=== PATIENT | female | born 1980 | race Caucasian/White ===

== ENCOUNTER 2017-01-26 16:57 | Inpatient (IN) | payer OTHER ==
[~2017-01-26] VITALS: Ht 182.9 cm; Wt 73.1 kg
[~2017-01-26 16:57] MED LIST changes: -ABILIFY 15MG TA15 MG PO; -ADDERALL20 MG PO; -ADDERALL5 MG; -CEPHALEXIN500 M1 PO; -CIPRO 500MG TA500 MG PO; -COMPAZINE 110 MG/TAB PO; -DOXYCYCLINE HY100 MG PO; -HCTZ 25MG TAB25 MG PO; -HCTZ12.5TAB; -NORCO 325 MG-51 TAB PO; -PERCOCET 325 MG1 TA2 PO
[2017-01-26 17:10] VITALS: BP 115/71; PULSE 93; TEMP 97.1
[2017-01-26] MEDS ORDERED: ADDERALL20 MG PO (17:29)
[2017-01-26] MEDS ORDERED: HCTZ 25MG TAB25 MG PO (17:29)
[2017-01-26 21:34] VITALS: BP 104/59; PULSE 81; TEMP 98.7
[2017-01-27] VITALS (14 sets, daily range): BP systolic 100–116; BP diastolic 55–86; PULSE 73–102; TEMP 97.4–100.9
[2017-01-27 13:33] LABS: BASO % 0.2 % (0.0-2.0); EOS # 0.2 (0.0-0.7); EOS % 1.5 % (0-4.0); GRAN # 7.7 (1.4-6.5); GRAN % 78.8 % (42.2-75.2); LYMPH # 1.2 (1.2-3.4); LYMPH % 12.6 % (20.0-51.0); MEAN CELL VOLUME 86 fl (80.0-100.0); MEAN CORPUSCULAR HGB CONC 33 g/dl (33.0-37.0); MONO # 0.6 (0.1-0.6); MONO % 6.4 % (1.7-9.3); PLATELET COUNT 167 K/mm3 (130-400); RED BLOOD COUNT 4.02 M/mm3 (4.10-5.30); WHITE BLOOD COUNT 9.7 K/mm3 (4.8-10.8)
[2017-01-27 13:34] LABS: HEMOGLOBIN 11.5 g/dl (12.5-16.0); MEAN CORPUSCULAR HEMOGLOBIN 29 pg (27.0-31.0)
[2017-01-27 13:35] LABS: HEMATOCRIT 34.7 % (37.0-47.0)
[2017-01-27 13:51] LABS: CALCIUM 8.1 mg/dL (8.4-10.2); CREATININE, serum 0.54 mg/dL (0.52-1.25); POTASSIUM 3.8 mmol/L (3.4-5.0)
[2017-01-28 02:04] VITALS: BP 82/44; PULSE 69; TEMP 98.5
[2017-01-28 05:49] VITALS: BP 90/55; PULSE 57; TEMP 98.5
[2017-01-28 10:09] VITALS: BP 97/58; PULSE 68; TEMP 98.4
[2017-01-28] MEDS ORDERED: DOXYCYCLINE HY100 MG PO (12:35)
[2017-01-28] MEDS ORDERED: NORCO 325 MG-51 TAB PO (12:36)
== END 2017-01-28 13:10 | disposition home or self-care (01) | DRG 603 ==
LOC: SURG 16:57
PROVIDERS: Surgery
PROC: 0H9DXZZ Drainage of Right Lower Arm Skin, External Approach (ICD-10-PCS; principal; 2017-01-27 10:15)
DX: L02.413 Cutaneous abscess of right upper limb (principal); I10 Essential (primary) hypertension
CPT/HCPCS: A9284; J2270; J2405; J2704; J3010; J3370; J7050

== ENCOUNTER → 2017-01-26 | Outpatient (CLI) | payer OTHER ==
[~2017-01-26] MED LIST: ABILIFY 15MG TA15 MG PO; ADDERALL20 MG PO; ADDERALL5 MG; CEPHALEXIN500 M1 PO; CIPRO 500MG TA500 MG PO; COMPAZINE 110 MG/TAB PO; DOXYCYCLINE HY100 MG PO; HCTZ 25MG TAB25 MG PO; HCTZ12.5TAB; NORCO 325 MG-51 TAB PO; PERCOCET 325 MG1 TA2 PO; PRENATAL VITAMI1 TA5 PO
== END ==
LOC: ZCOL.LAB 20:43
DX: L02.413 Cutaneous abscess of right upper limb (principal)

== ENCOUNTER 2018-03-31 18:06 | Inpatient (IN) | payer SELFPAY ==
[~2018-03-31] VITALS: Ht 172.7 cm; Wt 68.2 kg
[~2018-03-31 18:06] MED LIST changes: +ADDERALL20 MG PO; +DOXYCYCLINE HY100 MG PO; +HCTZ 25MG TAB25 MG PO; +NORCO 325 MG-51 TAB PO
[2018-03-31 18:25] LABS: BASO # 0.1 (0.0-0.2); BASO % 0.3 % (0.0-2.0); GRAN # 21.9 (1.4-6.5); GRAN % 90.8 % (42.2-75.2); HEMATOCRIT 38.3 % (37.0-47.0); HEMOGLOBIN 12.5 g/dl (12.5-16.0); LYMPH # 1.2 (1.2-3.4); MEAN CELL VOLUME 86 fl (80.0-100.0); MEAN CORPUSCULAR HEMOGLOBIN 28 pg (27.0-31.0); MEAN CORPUSCULAR HGB CONC 33 g/dl (33.0-37.0); MEAN PLATELET VOLUME 9.4 fl (7.4-10.4); MONO # 0.8 (0.1-0.6); MONO % 3.4 % (1.7-9.3); PLATELET COUNT 535 K/mm3 (130-400); RED BLOOD COUNT 4.48 M/mm3 (4.10-5.30); REDCELL DISTRIBUTION WIDTH-CV 14.5 % (11.5-14.5)
[2018-03-31 18:38] LABS: ALBUMIN 3.9 gm/dL (3.5-5.0); BILIRUBIN,TOTAL 0.7 mg/dL (0.0-1.0); C-REACTIVE PROTEIN 0.7 mg/dL (0.0-0.9); CALCIUM 9.3 mg/dL (8.4-10.2); CREATININE, serum 0.94 mg/dL (0.52-1.25); POTASSIUM 3.7 mmol/L (3.4-5.0); TOTAL PROTEIN 7.1 gm/dL (6.4-8.2)
[2018-03-31 18:57] LABS: COLLECTION METHOD CLEAN CATCH
[2018-03-31 19:04] LABS: PH 9 (5-8); URINE APPEARANCE Hazy; URINE BACTERIA None Seen /hpf; URINE BILIRUBIN Negative (NEGATIVE); URINE BLOOD Negative (NEGATIVE); URINE COLOR Yellow; URINE GLUCOSE Negative (NEGATIVE); URINE KETONE Trace (NEGATIVE); URINE LEUKOCYTE ESTERASE 1+ (NEGATIVE); URINE NITRATE Negative (NEGATIVE); URINE PROTEIN(semi-quant) 2+ (NEGATIVE); URINE UROBILINOGEN Negative (NEGATIVE)
[2018-03-31 21:38] VITALS: BP 138/89; PULSE 59; TEMP 98.3
[2018-04-01] VITALS (14 sets, daily range): BP systolic 79–106; BP diastolic 43–88; PULSE 51–84; TEMP 97.4–98.7
[2018-04-01 07:30] LABS: HEMOGLOBIN 10.8 g/dl (12.5-16.0); MEAN CELL VOLUME 86 fl (80.0-100.0); MEAN CORPUSCULAR HEMOGLOBIN 28 pg (27.0-31.0); MEAN CORPUSCULAR HGB CONC 32 g/dl (33.0-37.0); MEAN PLATELET VOLUME 10.3 fl (7.4-10.4); RED BLOOD COUNT 3.87 M/mm3 (4.10-5.30); REDCELL DISTRIBUTION WIDTH-CV 14.7 % (11.5-14.5)
[2018-04-01 07:34] LABS: HEMATOCRIT 33.3 % (37.0-47.0); PLATELET COUNT 410 K/mm3 (130-400)
[2018-04-01 07:37] LABS: CREATININE, serum 0.92 mg/dL (0.52-1.25)
[2018-04-01 08:40] LABS: BAND 10 % (0-10); LYMPHOCYTE 6 % (20.0-51.0); NEUTROPHILS 82 % (42.0-75.2); PLATELET ESTIMATE INCREASED (NORMAL)
[2018-04-02 04:16] VITALS: BP 86/54; PULSE 46; TEMP 97.7
[2018-04-02 06:15] LABS: BASO % 0.1 % (0.0-2.0); EOS % 0.1 % (0-4.0); GRAN # 10.2 (1.4-6.5); LYMPH # 1.2 (1.2-3.4); MEAN CELL VOLUME 89 fl (80.0-100.0); MEAN CORPUSCULAR HGB CONC 32 g/dl (33.0-37.0); MEAN PLATELET VOLUME 10.3 fl (7.4-10.4); MONO # 0.5 (0.1-0.6); PLATELET COUNT 327 K/mm3 (130-400); RED BLOOD COUNT 3.51 M/mm3 (4.10-5.30)
[2018-04-02 06:20] LABS: HEMATOCRIT 31.1 % (37.0-47.0); HEMOGLOBIN 9.8 g/dl (12.5-16.0); MEAN CORPUSCULAR HEMOGLOBIN 28 pg (27.0-31.0)
[2018-04-02 06:26] LABS: CALCIUM 8.2 mg/dL (8.4-10.2); CREATININE, serum 0.82 mg/dL (0.52-1.25); MAGNESIUM 1.9 mg/dL (1.6-2.3); POTASSIUM 4.6 mmol/L (3.4-5.0)
[2018-04-02 09:18] VITALS: BP 102/63; PULSE 85; TEMP 98
[2018-04-02 09:19] VITALS: BP 110/58
[2018-04-02 11:55] VITALS: BP 117/74; PULSE 77; TEMP 98.4
[2018-04-02] MEDS ORDERED: CIPRO 500MG TA500 MG PO (12:13)
[2018-04-02] MEDS ORDERED: COMPAZINE 110 MG/TAB PO (12:14)
[2018-04-02] MEDS ORDERED: NORCO 325 MG-51 TAB PO (12:16)
== END 2018-04-02 16:15 | disposition home or self-care (01) | DRG 661 ==
LOC: COL.ER 18:06 → SURG 20:12
PROVIDERS: Family Medicine; Internal Medicine; Nurse Practitioner; Urology
PROC: 0TCB8ZZ Extirpation of Matter from Bladder, Via Natural or Artificial Opening Endoscopic (ICD-10-PCS; principal; 2018-04-01 12:00)
PROC: 0T778DZ Dilation of Left Ureter with Intraluminal Device, Via Natural or Artificial Opening Endoscopic (ICD-10-PCS; 2018-04-01 12:00)
PROC: BT1F1ZZ Fluoroscopy of Left Kidney, Ureter and Bladder using Low Osmolar Contrast (ICD-10-PCS; 2018-04-01 12:00)
PROC: 0T9B80Z Drainage of Bladder with Drainage Device, Via Natural or Artificial Opening Endoscopic (ICD-10-PCS; 2018-04-01 12:00)
DX: N13.6 Pyonephrosis (principal); F90.9 Attention-deficit hyperactivity disorder, unspecified type; Z87.891 Personal history of nicotine dependence; D64.9 Anemia, unspecified; I95.9 Hypotension, unspecified
CPT/HCPCS: OP; 99222-AI; A4216; C1769; C2617; G0378; J0690; J0696; J1100; J1170; J1580; J2405; J2550; J2704; J3010; J7030; J7120; Q9967

== ENCOUNTER 2018-06-08 16:12 | Emergency (ER) | payer SELFPAY ==
[~2018-06-08] VITALS: Ht 182.9 cm; Wt 68.2 kg
[~2018-06-08 16:12] MED LIST changes: +CIPRO 500MG TA500 MG PO; +COMPAZINE 110 MG/TAB PO
[2018-06-08 16:17] VITALS: TEMP 98
[2018-06-08] MEDS ORDERED: ADDERALL5 MG (17:00)
[2018-06-08] MEDS ORDERED: HCTZ12.5TAB (17:01)
[2018-06-08 17:50] LABS: ALANINE AMINOTRANSFERASE 25 U/L (9-52); ALBUMIN 4.5 gm/dL (3.5-5.0); ALKALINE PHOSPHATASE 83 U/L (50-136); ANION GAP 8 mmol/L (7-16); AST,SGOT 23 U/L (15-37); BILIRUBIN,TOTAL 0.6 mg/dL (0.0-1.0); BLOOD UREA NITROGEN 11 mg/dL (7-17); CALCIUM 9.9 mg/dL (8.4-10.2); CARBON DIOXIDE 30 mmol/L (22-30); CHLORIDE 102 mmol/L (98-107); CREATININE, serum 0.77 mg/dL (0.52-1.25); GLUCOSE 102 mg/dL (74-106); POTASSIUM 3.6 mmol/L (3.4-5.0); SODIUM 140 mmol/L (137-145)
[2018-06-08 17:51] LABS: BASO % 0.5 % (0.0-2.0); EOS # 0.1 (0.0-0.7); EOS % 1.4 % (0-4.0); GRAN # 5.3 (1.4-6.5); HEMATOCRIT 44.1 % (37.0-47.0); HEMOGLOBIN 14.2 g/dl (12.5-16.0); LYMPH # 2.5 (1.2-3.4); LYMPH % 29.5 % (20.0-51.0); MEAN CELL VOLUME 85 fl (80.0-100.0); MEAN CORPUSCULAR HEMOGLOBIN 27 pg (27.0-31.0); MEAN CORPUSCULAR HGB CONC 32 g/dl (33.0-37.0); MEAN PLATELET VOLUME 10.5 fl (7.4-10.4); MONO # 0.6 (0.1-0.6); MONO % 6.4 % (1.7-9.3); PLATELET COUNT 266 K/mm3 (130-400)
[2018-06-08 17:52] LABS: ACETAMINOPHEN < 10 ug/mL (10-30); ALCOHOL(ethanol),MEDICAL < 10 mg/dL; SALICYLATE < 1.0 mg/dL
[2018-06-08 20:12] LABS: COLLECTION METHOD CLEAN CATCH
[2018-06-08 20:18] VITALS: BP 124/68; PULSE 84
[2018-06-08 20:27] LABS: TRICYCLIC ANTIDEPRESS URINE NEGATIVE
[2018-06-08 20:39] LABS: MUCOUS Present /lpf; PH 7 (5-8); SQUAMOUS EPITHELIAL None Seen /hpf; URINE APPEARANCE Cloudy; URINE BACTERIA None Seen /hpf; URINE BILIRUBIN Negative (NEGATIVE); URINE BLOOD 3+ (NEGATIVE); URINE COLOR Yellow; URINE GLUCOSE Negative (NEGATIVE); URINE KETONE Negative (NEGATIVE); URINE LEUKOCYTE ESTERASE 3+ (NEGATIVE); URINE NITRATE Negative (NEGATIVE); URINE PROTEIN(semi-quant) 2+ (NEGATIVE); URINE UROBILINOGEN Negative (NEGATIVE)
[2018-06-09] MEDS ORDERED: CIPRO 500MG TA500 MG PO ×2 (12:09)
[2018-06-10] MEDS ORDERED: CEPHALEXIN500 M1 PO (15:05)
== END 2018-06-09 01:24 | disposition home or self-care (01) ==
LOC: COL.ER 16:12
PROVIDERS: Emergency Medicine
DX: F32.9 Major depressive disorder, single episode, unspecified (principal); F43.10 Post-traumatic stress disorder, unspecified; F90.9 Attention-deficit hyperactivity disorder, unspecified type; F17.210 Nicotine dependence, cigarettes, uncomplicated

== ENCOUNTER 2018-09-23 21:42 | Day surgery (SDC) | payer SELFPAY ==
[~2018-09-23] VITALS: Ht 182.9 cm; Wt 70.0 kg
[~2018-09-23 21:42] MED LIST changes: +ADDERALL5 MG; +CEPHALEXIN500 M1 PO; +HCTZ12.5TAB
[2018-09-23 22:04] LABS: COLLECTION METHOD CLEAN CATCH
[2018-09-23 22:11] LABS: MUCOUS Present /lpf; PH 6 (5-8); SQUAMOUS EPITHELIAL None Seen /hpf; URINE APPEARANCE Cloudy; URINE BACTERIA Rare /hpf; URINE BILIRUBIN Negative (NEGATIVE); URINE BLOOD 2+ (NEGATIVE); URINE COLOR Amber; URINE GLUCOSE Negative (NEGATIVE); URINE KETONE Negative (NEGATIVE); URINE LEUKOCYTE ESTERASE 3+ (NEGATIVE); URINE NITRATE Positive (NEGATIVE); URINE PROTEIN(semi-quant) 2+ (NEGATIVE); URINE RBC >50 /hpf; URINE UROBILINOGEN >=4.0 mg/dL (NEGATIVE)
[2018-09-23 23:44] LABS: BASO % 0.2 % (0.0-2.0); EOS # 0.1 (0.0-0.7); EOS % 0.8 % (0-4.0); GRAN # 12.6 (1.4-6.5); GRAN % 79.4 % (42.2-75.2); HEMATOCRIT 41.2 % (37.0-47.0); HEMOGLOBIN 13.7 g/dl (12.5-16.0); LYMPH # 2.1 (1.2-3.4); LYMPH % 12.9 % (20.0-51.0); MEAN CELL VOLUME 84 fl (80.0-100.0); MEAN CORPUSCULAR HEMOGLOBIN 28 pg (27.0-31.0); MEAN CORPUSCULAR HGB CONC 33 g/dl (33.0-37.0); MEAN PLATELET VOLUME 11.4 fl (7.4-10.4); MONO % 6.4 % (1.7-9.3); PLATELET COUNT 177 K/mm3 (130-400); RED BLOOD COUNT 4.92 M/mm3 (4.10-5.30); REDCELL DISTRIBUTION WIDTH-CV 13.2 % (11.5-14.5)
[2018-09-23 23:58] LABS: ALBUMIN 3.6 gm/dL (3.5-5.0); BILIRUBIN,TOTAL 0.7 mg/dL (0.0-1.0); C-REACTIVE PROTEIN 7.6 mg/dL (0.0-0.9); CREATININE, serum 0.73 (0.52-1.25); POTASSIUM 3.6 mmol/L (3.4-5.0); TOTAL PROTEIN 6.6 gm/dL (6.4-8.2)
[2018-09-24] VITALS (12 sets, daily range): BP systolic 92–121; BP diastolic 61–85; PULSE 66–92; TEMP 98.1–99.4
--- NOTE | 2018-09-24 03:50 | NUR ---
Pt arrived at room from ER via stretcher. Pt guarding and has difficulty ambulating/standing straight. BS hypoactive. Respirations even and unalbored. Lungs clear. VSS. No acute needs at this time.
[2018-09-24] MEDS ORDERED: ADDERALL20 MG PO (04:13)
[2018-09-24] MEDS ORDERED: ABILIFY 15MG TA15 MG PO (04:15)
--- NOTE | 2018-09-24 04:38 | NUR ---
Five page admission done. Pt rating pain 7/10 in abdomen-radiating to back. Pain is sharp and stabbing. PRN pain medication administered. Pt is awake and alert.
--- NOTE | 2018-09-24 05:50 | NUR ---
Pts friend came to nursing station to alert staff that pt was having "spasms". Upon assessment, pt is guarding and visibly distressed. Pt describes pain 7/10 that is cramping/spasms in abdomen. Pt advised that it has not been long enough to get PRN Dilaudid again. Warm blanket provided to place on abdomen for comfort. Pt reports some relief. Will continue to monitor.
--- NOTE | 2018-09-24 06:20 | NUR ---
Pt sleeping. Easily arousable but drowsy. Friend at bedside. Pt erports pain in abdomen is 4/10 and cramping/spasm has subsided. Pt denies need for pain medication at this time, but is educated that she can have it, if needed. Pt has remained NPO. No needs noted.
--- NOTE | 2018-09-24 07:09 | NUR ---
Report given to Karli HINTON. Pt called out for pain medication. Rating pain 7/10 in abdomen. Pain is described as cramping/spasm. Pt is guarding and yelling out in pain. PRN pain medication given.
--- NOTE | 2018-09-24 08:00 | NUR ---
PATIENT IS DROWSY THIS MORNING. PATIENT AROUSES EASILY TO NAME. PATIENT IS A&OX4. SHALLOW, TACHYPNIC BREATHING AND LOW FEVER NOTED, OTHERWISE VSS. BOWEL SOUNDS HYPOACTIVE ALL FOUR QUADRANTS. PATIENT IS NPO FOR PROCEDURE. PATIENT DENIES COMPLAINTS OF N/V. PATIENT STATES THAT SHE FEELS WEAK THIS MORNING. POSITIVE PEDAL PULSES EQUAL BILATERALLY. NON-PITTING EDEMA TO FEET BILATERALLY. SEE MORNING ASSESSMENT. ARCHANA LIGHT WITHIN REACH.
--- NOTE | 2018-09-24 09:13 | NUR ---
PATIENT CONSENT FORMS FOR LAP APPY AND LEFT URETEROSCOPY STONE ABLATION AND STENT REMOVAL SIGNED AND ON PATIENT CHART.
--- NOTE | 2018-09-24 09:16 | NUR ---
PATIENT GIVEN PRN DOSE OF IV DILAUDID FOR PAIN RATED A 7/10 ON A 0-10 SCALE.
--- NOTE | 2018-09-24 10:50 | NUR ---
Initial visit; Patient receptive to Retail Sales Manager's visit prior to her surgical procedure. Patient requested Retail Sales Manager keep her in her prayers.
--- NOTE | 2018-09-24 11:03 | NUR ---
PATIENT CONSENT FORM FOR SURGERY SIGNED AND ON PATIENT CHART.
--- NOTE | 2018-09-24 13:06 | NUR ---
PATIENT IS TEARS UPON ENTRY INTO ROOM. PATIENT RATING HER PAIN AN 8/10 ON A 0-10 SCALE. PATIENT GIVEN PRN DOSE OF IV DILAUDID. WILL CONTINUE TO MONITOR.
--- NOTE | 2018-09-24 15:12 | NUR ---
PATIENT TAKEN TO PERIOP VIA BED BY JAMAAL PENNINGTON. WILL WAIT FOR ARRIVAL POST-OP TO ROOM 347.
--- NOTE | 2018-09-24 18:10 | NUR ---
PATIENT ARRIVED TO ROOM 347 VIA BED FROM PACU. PATIENT SETTELED INTO ROOM. BLOOD PRESSURES LOW, BUT POST-OP VITALS STABLE. ABDOMINAL LAP SITES X3 DRESSED WITH BANDAIDS AND ARE CD&I. PATIENT TOLERATING SIPS AND CHIPS. NO NEEDS AT THIS TIME.
--- NOTE | 2018-09-24 18:49 | NUR ---
REPORT GIVEN TO JAMAAL REYES.
--- NOTE | 2018-09-24 19:48 | NUR ---
Patient states she has pain 5/10 to abdomen. Percocet given. Respirations at 12, but answers questions appropriately. Patient talking on the phone, but IVF discontinued. Currently eating dinner. Will monitor.
--- NOTE | 2018-09-24 22:05 | NUR ---
Upon arrival to room patient noted to be resting with eyes closed and snoring. Patient did not wake up when this nurse was taking the dynamap off her finger. This nurse walked around the bed, and stated patient's name. She opened her eyes and I told her I was going to take the blood pressure cuff off. Patient noted to be diaphoretic. Then cried out in pain and stated her abdomen hurt. She asked when she could have pain medication next, but her words noted to be mumbled. She then fell back to sleep before I had time to answer. Will monitor patient closely.
--- NOTE | 2018-09-25 01:55 | NUR ---
Patient resting well in bed with eyes closed. Call light in reach. Will continue to monitor.
[2018-09-25 04:00] VITALS: BP 93/60; PULSE 72; TEMP 98.3
--- NOTE | 2018-09-25 05:35 | NUR ---
Patient resting in bed with eyes closed. Breathing 16bpm. No s/sx of pain noted. Call light within reach. Will continue to monitor.
--- NOTE | 2018-09-25 06:57 | NUR ---
Report given to JAMAAL Calvillo.
[2018-09-25 07:52] VITALS: BP 97/52; PULSE 63; TEMP 97.9
--- NOTE | 2018-09-25 08:00 | NUR ---
PATIENT IS DROWSY AND RESTING IN BED. PATIENT AROUSES EASILY. PATIENT IS A&OX4. BP LOW, OTHERWISE VSS. ABDOMINAL LAP SITES X3 DRESSED WITH BANDAIDS WITH SCANT AMOUNT OF SHADING PRESENT. BOWEL SOUNDS ACTIVE ALL FOUR QUADRANTS. PATIENT RATING HER PAIN A 4/10 ON A 0-10 SCALE. SEE MORNING ASSESSMENT. BREAKFAST TRAY ORDERED. CALL LIGHT WITHIN REACH. NO NEEDS AT THIS TIME.
[2018-09-25] MEDS ORDERED: PERCOCET 325 MG1 TA2 PO (09:45)
[2018-09-25 11:50] VITALS: BP 106/61; PULSE 81; TEMP 98.7
--- NOTE | 2018-09-25 13:56 | NUR ---
PATIENT'S LEFT HAND INT DC'D PER PENDING DISCHARGE. PATIENT TOLERATED WELL. PATIENT GIVEN TWO TABLETS OF PRN PERCOCET PRIOR TO DISCHARGE. DISCHARGE INSTRUCTIONS REVIEWED WITH PATIENT. ALL QUESTIONS ANSWERED. PATIENT PERSONAL BELONGINGS GATHERED. PATIENT WAITING FOR RIDE TO ARRIVE FOR DISCHARGE. NO OTHER NEEDS AT THIS TIME.
--- NOTE | 2018-09-25 14:04 | NUR ---
JORDY met with patient about discharge planning. Patient is waiting for her friend to pick her up. Patient lives independently at home with her friend. Patient reports she is currently homeless but is staying with her friend until she can get a apartment of her own. Patient does not have a PCP because she does not have insurance. JORDY informed patient of the Clinic and [facility] because both of those clinics accept patient's without insurance. Patient reports she does not have any DME or home health services. She also does not have a DPOA and is not interested in completing one at this time. No discharge needs.
--- NOTE | 2018-09-25 14:50 | NUR ---
PATIENT TAKEN TO PERSONAL VEHICLE VIA WHEELCHAIR BY SURGICAL STAFF. PATIENT DISCHARGED.
== END 2018-09-25 14:50 | disposition home or self-care (01) ==
LOC: COL.ER 21:42 → SDCO 09-24 03:30 → COL.ER 09-24 03:30 → SURG 09-24 03:30 → EDBEDREQSVC 09-24 03:35 → SURG 09-25 14:50 → SDCO 09-25 14:50
PROVIDERS: Emergency Medicine
DX: K35.891 Other acute appendicitis without perforation, with gangrene (principal); N20.1 Calculus of ureter; K42.9 Umbilical hernia without obstruction or gangrene; F17.210 Nicotine dependence, cigarettes, uncomplicated; Z88.2 Allergy status to sulfonamides; Z79.899 Other long term (current) drug therapy; Z87.442 Personal history of urinary calculi; F98.8 Other specified behavioral and emotional disorders with onset usually occurring in childhood and adolescence; F41.9 Anxiety disorder, unspecified; F43.10 Post-traumatic stress disorder, unspecified; L55.9 Sunburn, unspecified; M19.042 Primary osteoarthritis, left hand; M19.041 Primary osteoarthritis, right hand; M19.072 Primary osteoarthritis, left ankle and foot; M19.071 Primary osteoarthritis, right ankle and foot
CPT/HCPCS: C1769; G0378; J0696; J1170; J2405; J2550; J2704; J3010; J7030; J7120; Q9967

== ENCOUNTER 2019-03-05 11:51 | Emergency (ER) | payer SELFPAY ==
[~2019-03-05] VITALS: Ht 182.9 cm; Wt 77.3 kg
[~2019-03-05 11:51] MED LIST changes: +ABILIFY 15MG TA15 MG PO; +PERCOCET 325 MG1 TA2 PO
[2019-03-05 11:59] VITALS: TEMP 98.3
[2019-03-05 12:35] LABS: COLLECTION METHOD CLEAN CATCH
[2019-03-05 12:38] LABS: BASO % 0.4 % (0.0-2.0); EOS # 0.1 (0.0-0.7); EOS % 1.1 % (0-4.0); GRAN # 5.2 (1.4-6.5); GRAN % 71.5 % (42.2-75.2); HEMATOCRIT 44.1 % (37.0-47.0); HEMOGLOBIN 14.4 g/dl (12.5-16.0); LYMPH # 1.6 (1.2-3.4); LYMPH % 21.8 % (20.0-51.0); MEAN CELL VOLUME 88 fl (80.0-100.0); MEAN CORPUSCULAR HEMOGLOBIN 29 pg (27.0-31.0); MEAN CORPUSCULAR HGB CONC 33 g/dl (33.0-37.0); MONO # 0.4 (0.1-0.6); MONO % 5.1 % (1.7-9.3); PLATELET COUNT 211 K/mm3 (130-400); RED BLOOD COUNT 5.02 M/mm3 (4.10-5.30); REDCELL DISTRIBUTION WIDTH-CV 13.2 % (11.5-14.5)
[2019-03-05 12:41] LABS: MUCOUS Present /lpf; PH 6 (5-8); SQUAMOUS EPITHELIAL 0-2 /hpf; URINE APPEARANCE Clear; URINE BACTERIA None Seen /hpf; URINE BILIRUBIN Negative (NEGATIVE); URINE BLOOD Negative (NEGATIVE); URINE COLOR Yellow; URINE GLUCOSE Negative (NEGATIVE); URINE KETONE Negative (NEGATIVE); URINE LEUKOCYTE ESTERASE Negative (NEGATIVE); URINE NITRATE Negative (NEGATIVE); URINE PROTEIN(semi-quant) Negative (NEGATIVE); URINE RBC 0-2 /hpf; URINE UROBILINOGEN Negative (NEGATIVE)
[2019-03-05 12:55] LABS: ALANINE AMINOTRANSFERASE 21 U/L (9-52); ALBUMIN 4.4 gm/dL (3.5-5.0); ALKALINE PHOSPHATASE 72 U/L (50-136); ANION GAP 10 mmol/L (7-16); AST,SGOT 18 U/L (15-37); BILIRUBIN,TOTAL 0.5 mg/dL (0.0-1.0); BLOOD UREA NITROGEN 10 mg/dL (7-17); CALCIUM 9.2 mg/dL (8.4-10.2); CARBON DIOXIDE 25 mmol/L (22-30); CHLORIDE 106 mmol/L (98-107); GLUCOSE 89 mg/dL (74-106); POTASSIUM 4.1 mmol/L (3.4-5.0); SODIUM 141 mmol/L (137-145); TOTAL PROTEIN 7.2 gm/dL (6.4-8.2)
[2019-03-05 13:20] LABS: C-REACTIVE PROTEIN < 0.5 mg/dL (0.0-0.9)
[2019-03-05] MEDS ORDERED: FLAGYL500 MG PO (14:12)
[2019-03-05 15:14] VITALS: BP 101/68; PULSE 58
[2019-03-05 15:35] LABS: LIPASE 230 U/L (23-300)
== END 2019-03-05 15:15 | disposition home or self-care (01) ==
LOC: COL.ER 11:51
PROVIDERS: Emergency Medicine
DX: N76.0 Acute vaginitis (principal); B96.89 Other specified bacterial agents as the cause of diseases classified elsewhere; F17.210 Nicotine dependence, cigarettes, uncomplicated; F43.10 Post-traumatic stress disorder, unspecified; Z90.89 Acquired absence of other organs
CPT/HCPCS: J2270; J2405; J7030; Q9967

== ENCOUNTER → 2019-03-28 | Outpatient (CLI) | payer OTHER ==
[~2019-03-28] MED LIST changes: +FLAGYL500 MG PO
== END ==
LOC: COL.RAD 09:33
DX: Z02.71 Encounter for disability determination (principal); M47.898 Other spondylosis, sacral and sacrococcygeal region

== ENCOUNTER → 2019-04-11 | Outpatient (CLI) | payer OTHER | LOC: MC.RAD 10:40 | DX: N63.20 Unspecified lump in the left breast, unspecified quadrant (principal) | CPT/HCPCS: G0279 ==

== ENCOUNTER → 2019-04-24 | Outpatient (CLI) | payer OTHER | LOC: MC.RAD 09:55 | DX: N63.20 Unspecified lump in the left breast, unspecified quadrant (principal) ==

== ENCOUNTER 2019-05-03 09:20 | Outpatient (RCR) | payer OTHER | END 2019-05-27 16:16 | disposition home or self-care (01) | LOC: WSC 09:20 | DX: Z02.71 Encounter for disability determination (principal) ==

== ENCOUNTER 2021-11-23 01:20 | Observation (INO) | payer SELFPAY ==
[2021-11-23] VITALS (1346 sets, daily range): BP systolic 119–1126; BP diastolic 78–127; PULSE 55–98; TEMP 99; O2SAT 91–100
[~2021-11-23] VITALS: Ht 165.1 cm; Wt 77.8 kg
[2021-11-23 02:34] LABS: BASO % 0.6 % (0.0-2.0); EOS # 0.4 K/mm3 (0.0-0.7); EOS % 5.5 % (0.0-4.0); GRAN # 3.8 K/mm3 (1.4-6.5); GRAN % 57.2 % (42.2-75.2); HEMATOCRIT 37.9 % (37.0-47.0); HEMOGLOBIN 12.4 g/dl (12.5-16.0); LYMPH # 1.9 K/mm3 (1.2-3.4); MEAN CELL VOLUME 85 fl (80.0-100.0); MEAN CORPUSCULAR HEMOGLOBIN 28 pg (27-31); MEAN CORPUSCULAR HGB CONC 33 g/dl (33.0-37.0); MEAN PLATELET VOLUME 11.6 fl (7.4-10.4); MONO # 0.5 K/mm3 (0.1-0.6); MONO % 7.5 % (1.7-9.3); PLATELET COUNT 176 K/mm3 (130-400); RED BLOOD COUNT 4.45 M/mm3 (4.10-5.30); REDCELL DISTRIBUTION WIDTH-CV 13.1 % (11.5-14.5)
[2021-11-23 02:35] LABS: COLLECTION METHOD CLEAN CATCH
--- NOTE | 2021-11-23 02:38 | NUR ---
PT TRANSPORTED TO ICU VIA EMS. UPON ARRIVAL PT OBTUNDED AND RESPONSIVE ONLY TO PAINFUL STIMULUS. LINE RUNNING ACCORDING TO EMS REPORT. STILL IN PLACE AND DRAINING APPROPRIATELY. VSS AT THIS TIME. UNABLE TO PERFORM SUICIDE ASSESSMENT DUE TO PT BEING OBTUNDED. UNABLE TO PERFORM INITIAL INTAKE ASSESSMENT DUE TO PT BEING OBTUNDED. UNABLE TO PERFORM A MEDREC DUE TO PT BEING OBTUNDED.
[2021-11-23 02:41] LABS: MUCOUS Present (NOT PRESENT); PH 5 (5-8); URINE APPEARANCE Hazy (CLEAR/HAZY); URINE BACTERIA None Seen /hpf (NONE SEEN); URINE BILIRUBIN Negative (NEGATIVE); URINE BLOOD 2+ (NEGATIVE); URINE COLOR Yellow (YELLOW); URINE GLUCOSE Negative (NEGATIVE); URINE KETONE Negative (NEGATIVE); URINE LEUKOCYTE ESTERASE 1+ (NEGATIVE); URINE NITRATE Positive (NEGATIVE); URINE PROTEIN(semi-quant) 2+ (NEGATIVE); URINE RBC >50 /hpf (0-2); URINE UROBILINOGEN Negative (NEGATIVE); URINE WBC >50 /hpf (0-2)
[2021-11-23 02:49] LABS: CALCIUM 8.8 mg/dL (8.4-10.2); CREATININE, serum 0.77 mg/dL (0.57-1.11)
[2021-11-23 02:51] LABS: POTASSIUM 2.9 mmol/L (3.5-4.5)
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
--- NOTE | 2021-11-23 08:53 | NUR ---
PT'S CALLING AND REQUESTING UPDATE ON PT'S STATUS. THIS NURSE LET HIM KNOW THAT DUE TO PT'S CURRENT SITUATION I AM UNABLE TO GIVE FULL UPDATE ON PT'S STATUS; BUT DID LET HIM KNOW THAT SHE IS STABLE BUT IN SUICIDE PRECAUTIONS THEREFORE SHE CANNOT HAVE ANY VISITORS. VOICED UNDERSTANDING AND REQUESTED THAT HOSPITALIST CALL HIM AFTER HE SEE'S PT. THIS NURSE LET HIM KNOW THAT I WOULD PASS THAT ON TO THE HOSPITALIST.
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
--- NOTE | 2021-11-23 20:14 | NUR ---
BEDSIDE SHIFT REPORT RECEIVED FROM JAMAAL LERNER. PT CURRENTLY RESTING IN BED. NO C/O PAIN OR DISCOMFORT. STILL DRAINING APPROPIATELY. VSS. NO ACUTE CHANGES NOTED AT THIS TIME
[2021-11-24] VITALS (920 sets, daily range): BP systolic 116–127; BP diastolic 79–89; PULSE 67–84; O2SAT 90–100
--- NOTE | 2021-11-24 04:45 | NUR ---
Received report from JAMAAL Dillon. Patient sleeping quietly in bed. Vitals within normal limits. Bed in lowest position, all alarms on.
[2021-11-24 06:17] LABS: BASO % 0.4 % (0.0-2.0); EOS # 0.3 K/mm3 (0.0-0.7); EOS % 6.1 % (0.0-4.0); GRAN # 2.7 K/mm3 (1.4-6.5); GRAN % 51.2 % (42.2-75.2); HEMOGLOBIN 11.1 g/dl (12.5-16.0); LYMPH # 1.8 K/mm3 (1.2-3.4); LYMPH % 34.8 % (20.0-51.0); MEAN CELL VOLUME 86 fl (80.0-100.0); MEAN CORPUSCULAR HEMOGLOBIN 28 pg (27-31); MEAN CORPUSCULAR HGB CONC 33 g/dl (33.0-37.0); MEAN PLATELET VOLUME 11.7 fl (7.4-10.4); MONO # 0.4 K/mm3 (0.1-0.6); MONO % 7.3 % (1.7-9.3); PLATELET COUNT 163 K/mm3 (130-400); RED BLOOD COUNT 3.94 M/mm3 (4.10-5.30); REDCELL DISTRIBUTION WIDTH-CV 13.1 % (11.5-14.5)
[2021-11-24 06:30] LABS: HEMATOCRIT 33.9 % (37.0-47.0)
[2021-11-24 06:44] LABS: ALBUMIN 2.9 gm/dL (3.5-5.0); BILIRUBIN,TOTAL 0.4 mg/dL (0.2-1.2); CALCIUM 8.1 mg/dL (8.4-10.2); CREATININE, serum 0.67 mg/dL (0.57-1.11); POTASSIUM 3.9 mmol/L (3.5-4.5); TOTAL PROTEIN 5.1 gm/dL (6.2-8.1)
--- NOTE | 2021-11-24 07:00 | NUR ---
BEDSIDE REPORT RECEIVED FROM JAMAAL MARTINEZ. PT REMAINS IN LEVEL 1 SUICIDE PRECAUTIONS. PT ALERT AND ORIENTED THIS AM. REQUESTS TO CALL . THIS NURSE LET PT KNOW THAT DUE TO SUICIDE PRECAUTIONS SHE IS UNABLE TO SPEAK WITH HER AT THIS TIME. PT VOICED UNDERSTANDING.
--- NOTE | 2021-11-24 09:42 | NUR ---
Initial visit; Patient appeared upset and stated she wanted her . She said she had no spiritual needs. Library Clerk wished her well.
[2021-11-24] MEDS ORDERED: OMNICEF 300MG300 MG PO (14:07)
--- NOTE | 2021-11-24 15:51 | NUR ---
PT DISCHARGED TO HOME WITH SPOUSE AT THIS TIME. PT VERBALIZED UNDERSTANDING OF DISCHARGE INSTRUCTIONS.
--- NOTE | 2021-11-24 15:58 | NUR ---
[facility] screened the patient today and cleared her. The hospitalist is ready to discharge the patient. The patient discharged back home today, 11/24.
== END 2021-11-24 14:30 | disposition home or self-care (01) ==
LOC: ICU 01:20
PROVIDERS: Physician Assistant; ADMIT Student in an Organized Health Care Education/Training Program
DX: G93.40 Encephalopathy, unspecified (principal); N39.0 Urinary tract infection, site not specified; E87.6 Hypokalemia; F32.A Depression, unspecified; F41.9 Anxiety disorder, unspecified; I10 Essential (primary) hypertension; G89.29 Other chronic pain
CPT/HCPCS: G0378; J0692; J0696; J3480